=== PATIENT | male | born 1950 | race Caucasian/White ===

== ENCOUNTER 2019-04-03 12:51 | Outpatient (CLI) | payer MEDICARE | END 2019-04-03 23:59 | disposition home or self-care (01) | LOC: CFH 12:51 | PROVIDERS: ATTEND Family Medicine | DX: M25.562 Pain in left knee (principal) ==

== ENCOUNTER → 2019-05-31 | Outpatient (CLI) | payer MEDICARE ==
[~2019-05-31] MED LIST: TAMS-11 PO
== END | disposition home or self-care (01) ==
LOC: STAR 11:12
PROVIDERS: ATTEND Orthopaedic Surgery
DX: Z01.818 Encounter for other preprocedural examination (principal); S83.242A Other tear of medial meniscus, current injury, left knee, initial encounter; X58.XXXA Exposure to other specified factors, initial encounter; Y93.89 Activity, other specified; Y92.89 Other specified places as the place of occurrence of the external cause; Y99.8 Other external cause status
CPT/HCPCS: 93005

== ENCOUNTER 2019-06-04 05:37 | Day surgery (SDC) | payer MEDICARE ==
[~2019-06-04] VITALS: Ht 177.8 cm; Wt 78.0 kg
[2019-06-04] MEDS ORDERED: EPINEPHRINE 1 MG/ML, 1ML ONE (06:26)
[2019-06-04] MEDS ORDERED: LIDOCAINE 1%-EPI 1:100K, 20ML ONE (06:26)
[2019-06-04] MEDS ORDERED: BUPIVACAINE/PF 0.5% ONE (06:26)
[2019-06-04 06:46] VITALS: BP 112/81
[2019-06-04] MEDS ORDERED: LACTATED RINGERS 1,000 ML IV SCH (06:59)
[2019-06-04] MEDS ORDERED: ACETAMINOPHEN 500 MG TABLET PO ONE (07:00)
[2019-06-04] MEDS ORDERED: GABAPENTIN 300 MG CAPSULE PO ONE (07:00)
[2019-06-04] MEDS ORDERED: FENTANYL PF 100 MCG/2ML ONE (07:22)
[2019-06-04] MEDS ORDERED: MIDAZOLAM 1 MG/ML, 2ML ONE (07:22)
[2019-06-04] MEDS ORDERED: MEPERIDINE/PF 25MG/ML,1ML IVPush PRN (07:30)
[2019-06-04] MEDS ORDERED: HYDROmorphone 2 MG/ML, 1ML IVPush PRN (07:30)
[2019-06-04] MEDS ORDERED: ALBUTEROL/IPRATROPIUM 2.5MG/0.5MG, 3 ML NPPB PRN (07:30)
[2019-06-04] MEDS ORDERED: hydrALAzine 20 MG/ML, 1ML IV PRN (07:30)
[2019-06-04] MEDS ORDERED: TAMS-11 PO (07:30)
[2019-06-04] MEDS ORDERED: OXYcodone 5 MG/5 ML ORAL.SOL UDC PO PRN (07:30)
[2019-06-04] MEDS ORDERED: METOPROLOL 1 MG/ML, 5ML IV PRN (07:30)
[2019-06-04] MEDS ORDERED: FENTANYL PF 100 MCG/2ML IV PRN (07:30)
[2019-06-04] MEDS ORDERED: MIDAZOLAM 1 MG/ML, 2ML IV PRN (07:30)
[2019-06-04] MEDS ORDERED: PROMETHAZINE 25 MG/ML, 1ML IV PRN (07:30)
[2019-06-04] MEDS ORDERED: KETOROLAC 30 MG/1 ML ONE (07:48)
[2019-06-04] MEDS ORDERED: PROPOFOL 10 MG/ML, 20ML ONE (08:03)
[2019-06-04] MEDS ORDERED: ONDANSETRON 2MG/ML, 2ML ONE (08:03)
[2019-06-04] MEDS ORDERED: DEXAMETHASONE 4 MG/ML, 1ML ONE (08:03)
[2019-06-04] MEDS ORDERED: CEFAZOLIN 1,000 MG ONE (08:03)
[2019-06-04] MEDS ORDERED: MEPERIDINE/PF 25MG/ML,1ML ONE (09:28)
[2019-06-04] MEDS ORDERED: OXYcodone 5 MG/5 ML ORAL.SOL UDC ONE (09:28)
[2019-11-05] MEDS ORDERED: TICA90TA PO (08:17)
[2019-11-05] MEDS ORDERED: ATOR-2 PO (08:17)
[2019-11-05] MEDS ORDERED: ASPI-515 PO (08:17)
[2019-11-05] MEDS ORDERED: CARV3.1212 PO (08:17)
== END 2019-06-04 11:10 | disposition home or self-care (01) ==
LOC: OUT 05:37
PROVIDERS: ATTEND Orthopaedic Surgery
DX: S83.232A Complex tear of medial meniscus, current injury, left knee, initial encounter (principal); M94.262 Chondromalacia, left knee; M21.162 Varus deformity, not elsewhere classified, left knee; N40.0 Benign prostatic hyperplasia without lower urinary tract symptoms; M19.90 Unspecified osteoarthritis, unspecified site; Z79.899 Other long term (current) drug therapy; Z87.891 Personal history of nicotine dependence; X58.XXXA Exposure to other specified factors, initial encounter; Y93.89 Activity, other specified; Y92.89 Other specified places as the place of occurrence of the external cause; Y99.8 Other external cause status
CPT/HCPCS: 29881; J0171; J0690; J1100; J1885; J2175; J2250; J2405; J2704; J3010; J3490; J7120

== ENCOUNTER → 2019-07-26 | Outpatient (CLI) | payer MEDICARE ==
[~2019-07-26] MED LIST changes: +OMNIPAQUE 350 MG/ML, 75ML BOTTLE ONE
[2019-07-26 13:14] LABS: ALANINE AMINOTRANSFERASE 27 U/L (12-78); ALBUMIN 3.5 g/dL (3.4-5.0); ALKALINE PHOSPHATASE 74 U/L (45-117); BILIRUBIN,TOTAL 0.7 mg/dL (0.2-1.0); CALCIUM 8.8 mg/dL (8.5-10.1); CREATININE 0.96 mg/dL (0.7-1.3); TOTAL PROTEIN 7.2 g/dL (6.4-8.2)
[2019-07-26 13:28] LABS: ANION GAP 4 mmol/L (5-15); CHLORIDE 108 mmol/L (98-107)
== END | disposition home or self-care (01) ==
LOC: CFH 08:13
PROVIDERS: ATTEND Nurse Practitioner Family
DX: D17.9 Benign lipomatous neoplasm, unspecified (principal); M19.011 Primary osteoarthritis, right shoulder; J84.10 Pulmonary fibrosis, unspecified; R22.2 Localized swelling, mass and lump, trunk
CPT/HCPCS: 36415; 71260; 80053; 82565; Q9967

== ENCOUNTER 2019-11-16 18:21 | Inpatient (IN) | payer MEDICARE ==
[~2019-11-16] VITALS: Ht 175.3 cm; Wt 76.9 kg
[~2019-11-16 18:21] MED LIST changes: +ASPI-515 PO; +ATOR-2 PO; +CARV3.1212 PO; -OMNIPAQUE 350 MG/ML, 75ML BOTTLE ONE; +TICA90TA PO
--- NOTE | 2019-11-16 18:42 | NUR ---
BIB [facility] FOR C/O LIGHTHEADEDNESS AND CLAMMY W/ LOW BP AFTER WORKING IN THE YARD. PT HAS HX WA W/ 2 STENTS 3 WEEKS AGO. PT RESTING ON [place]. DELROY. VSS. DENIES CP/SOB. MONITORS APPLIED.
--- NOTE | 2019-11-16 19:01 | NUR ---
REPORT GIVEN TO JENELLE EDWARDS RN.
[2019-11-16 19:17] LABS: BASOPHILS # (AUTO) 0.02 x10^3/uL (0-0.1); BASOPHILS % (AUTO) 1 % (0-1); EOSINOPHILS # (AUTO) 0.12 x10^3/uL (0-0.4); EOSINOPHILS % (AUTO) 3 % (1-7); LYMPHOCYTES # (AUTO) 0.96 x10^3/uL (1-3.4); LYMPHOCYTES % (AUTO) 22 % (22-44); MD NO; MEAN CORPUSCULAR HEMOGLOBIN 30.7 pg (27.5-34.5); MEAN CORPUSCULAR HGB CONC 33.2 g/dL (33.2-36.2); MEAN CORPUSCULAR VOLUME 92.7 fL (81-97); MEAN PLATELET VOLUME 8.8 fL (7.4-10.4); MONOCYTES # (AUTO) 0.64 x10^3/uL (0.2-0.8); MONOCYTES % (AUTO) 14 % (2-9); NEUTROPHILS # (AUTO) 2.71 x10^3/uL (1.8-6.8); NEUTROPHILS % (AUTO) 61 % (42-75); PLATELET COUNT 266 x10^3/uL (130-400); RED BLOOD COUNT 4.29 x10^6/uL (4.38-5.82); RED CELL DISTRIBUTION WIDTH 12.8 % (9.4-14.8)
[2019-11-16 19:25] LABS: ALBUMIN 3.3 g/dL (3.4-5.0); ANION GAP 8 mmol/L (5-15); CALCIUM 9.2 mg/dL (8.5-10.1); CHLORIDE 109 mmol/L (98-107)
[2019-11-16 19:30] LABS: CREATININE 1.06 mg/dL (0.7-1.3); TROPONIN I 0.057 ng/mL (0.000-0.045)
--- NOTE | 2019-11-16 20:43 | NUR ---
PT PROVIDED WATER PER MD. MONITORING IN PLACE, CALL LIGHT WITHIN REACH. PT UPDATED ON POC.
[2019-11-16] MEDS ORDERED: hydrALAzine 20 MG/ML, 1ML IVPush PRN (21:30)
[2019-11-16] MEDS ORDERED: BISACODYL 10 MG SUPP PR PRN (21:30)
[2019-11-16] MEDS ORDERED: ACETAMINOPHEN 325 MG TABLET PO PRN (21:30)
[2019-11-16] MEDS ORDERED: POLYETHYLENE GLYCOL 17 GM PACKET PO PRN (21:30)
[2019-11-16] MEDS ORDERED: ONDANSETRON 2MG/ML, 2ML IVPush PRN (21:30)
--- NOTE | 2019-11-16 21:36 | NUR ---
PT PROVIDED SANDWICH AND WATER AT THIS TIME. DENIES FUTHER NEEDS.
--- NOTE | 2019-11-16 22:34 | NUR ---
Float rn:Pt assisted to RR. Amb w/ steady gait and independent. VSS. Lights turned off and HOB lowered for comfort.
[2019-11-16 23:00] VITALS: BP 114/75
[2019-11-16 23:02] VITALS: BP 107/73
[2019-11-16 23:04] VITALS: BP 100/66
[2019-11-17 00:52] LABS: TROPONIN I 0.049 ng/mL (0.000-0.045)
[2019-11-17] MEDS ORDERED: CARVEDILOL 3.125 MG TABLET PO SCH (06:00)
[2019-11-17 07:10] LABS: BASOPHILS # (AUTO) 0.01 x10^3/uL (0-0.1); BASOPHILS % (AUTO) 0 % (0-1); EOSINOPHILS # (AUTO) 0.09 x10^3/uL (0-0.4); EOSINOPHILS % (AUTO) 2 % (1-7); LYMPHOCYTES # (AUTO) 0.77 x10^3/uL (1-3.4); LYMPHOCYTES % (AUTO) 17 % (22-44); MD NO; MEAN CORPUSCULAR HEMOGLOBIN 31.1 pg (27.5-34.5); MEAN CORPUSCULAR HGB CONC 33.7 g/dL (33.2-36.2); MEAN CORPUSCULAR VOLUME 92.3 fL (81-97); MEAN PLATELET VOLUME 8.2 fL (7.4-10.4); MONOCYTES # (AUTO) 0.44 x10^3/uL (0.2-0.8); MONOCYTES % (AUTO) 10 % (2-9); NEUTROPHILS # (AUTO) 3.14 x10^3/uL (1.8-6.8); NEUTROPHILS % (AUTO) 71 % (42-75); PLATELET COUNT 252 x10^3/uL (130-400); RED BLOOD COUNT 4.35 x10^6/uL (4.38-5.82); RED CELL DISTRIBUTION WIDTH 12.8 % (9.4-14.8)
[2019-11-17 07:13] VITALS: BP 104/68
[2019-11-17 07:19] VITALS: BP 111/76
[2019-11-17 07:21] VITALS: BP 96/70
[2019-11-17 07:24] LABS: ANION GAP 10 mmol/L (5-15); CALCIUM 8.2 mg/dL (8.5-10.1); CHLORIDE 110 mmol/L (98-107)
[2019-11-17 07:30] LABS: ALANINE AMINOTRANSFERASE 25 U/L (12-78); ALKALINE PHOSPHATASE 60 U/L (45-117); BILIRUBIN,TOTAL 0.6 mg/dL (0.2-1.0); CREATININE 0.84 mg/dL (0.7-1.3); TOTAL PROTEIN 6.2 g/dL (6.4-8.2); TROPONIN I 0.048 ng/mL (0.000-0.045)
[2019-11-17] MEDS ORDERED: SODIUM CHLORIDE 0.9% 1,000 ML IV SCH (08:00)
[2019-11-17] MEDS ORDERED: SODIUM CHLORIDE 0.9% 1,000ML IVBOLUS ONE (08:00)
[2019-11-17] MEDS ORDERED: ASPIRIN 81 MG TABLET EC PO SCH (09:00)
[2019-11-17] MEDS ORDERED: TICAGRELOR 90 MG TABLET PO SCH (09:00)
[2019-11-17] MEDS ORDERED: TAMSULOSIN 0.4 MG CAP.ER.24H PO SCH (09:00)
[2019-11-17] MEDS ORDERED: SENNA/DOCUSATE TABLET PO SCH (09:00)
[2019-11-17 13:07] VITALS: BP 109/66
[2019-11-17 13:13] VITALS: BP 105/68
[2019-11-17 13:15] VITALS: BP 98/65
[2019-11-17] MEDS ORDERED: ATORVASTATIN 80 MG TABLET PO SCH (21:00)
== END 2019-11-17 15:14 | disposition home or self-care (01) | DRG 312 ==
LOC: ED 19:20 → EDIP 20:44 → 5SO 22:52 → DCLOUNGE 11-17 15:10
PROVIDERS: ADMIT Hospitalist; ATTEND Internal Medicine Infectious Disease
DX: I95.1 Orthostatic hypotension (principal); E86.0 Dehydration; M54.12 Radiculopathy, cervical region; R19.7 Diarrhea, unspecified; N40.0 Benign prostatic hyperplasia without lower urinary tract symptoms; I25.2 Old myocardial infarction; Z87.891 Personal history of nicotine dependence; Z95.5 Presence of coronary angioplasty implant and graft; Z79.899 Other long term (current) drug therapy
CPT/HCPCS: 36415; 70450; 71045; 80048; 80053; 82040; 84443; 84484; 85025; 93005; 99285; G0378; J7030

== ENCOUNTER → 2020-10-29 | Outpatient (CLI) | payer MEDICARE ==
[~2020-10-29] MED LIST changes: +ASCO100019 PO; -ASPI-515 PO; +ASPI-963 PO; +CHOL10003 PO; +FENU500C PO; +GLUC500T11 PO; +L. R1CAP2 PO; +MAGN400T36 PO; +PRAS10TA4 PO; +PUMP160C2 PO; +TURM500C4 PO; +UBID100C41 PO; +ZINC100T PO
[2020-10-29 15:04] LABS: BASOPHILS % (AUTO) 1 % (0-1); EOSINOPHILS % (AUTO) 2 % (1-7); LYMPHOCYTES % (AUTO) 17 % (22-44); MEAN CORPUSCULAR HEMOGLOBIN 31.5 pg (27.5-34.5); MEAN CORPUSCULAR HGB CONC 34.1 g/dL (33.2-36.2); MEAN PLATELET VOLUME 8.5 fL (7.4-10.4); MONOCYTES % (AUTO) 10 % (2-9); NEUTROPHILS % (AUTO) 71 % (42-75); PLATELET COUNT 258 x10^3/uL (130-400); RED BLOOD COUNT 4.84 x10^6/uL (4.38-5.82); RED CELL DISTRIBUTION WIDTH 13.8 % (9.4-14.8)
[2020-10-29 15:05] LABS: MD NO
[2020-10-29 15:13] LABS: ALANINE AMINOTRANSFERASE 47 U/L (12-78); ALBUMIN 3.7 g/dL (3.4-5.0); ANION GAP 6 mmol/L (5-15); CALCIUM 9.2 mg/dL (8.5-10.1); CHLORIDE 109 mmol/L (98-107); CREATININE 0.87 mg/dL (0.7-1.3)
[2020-10-29 15:16] LABS: ALKALINE PHOSPHATASE 69 U/L (45-117); BILIRUBIN,TOTAL 0.7 mg/dL (0.2-1.0); TOTAL PROTEIN 7.1 g/dL (6.4-8.2)
[2020-10-29 15:17] LABS: PROTHROMBIN TIME 10.7 Seconds (9.6-11.5)
[2020-10-29 16:05] LABS: MICROSCOPIC NOT IND
== END | disposition home or self-care (01) ==
LOC: STAR 13:30
PROVIDERS: ATTEND Neurological Surgery
DX: Z01.810 Encounter for preprocedural cardiovascular examination (principal); Z01.811 Encounter for preprocedural respiratory examination; Z01.812 Encounter for preprocedural laboratory examination; Z01.818 Encounter for other preprocedural examination; R82.90 Unspecified abnormal findings in urine; R79.1 Abnormal coagulation profile; M47.22 Other spondylosis with radiculopathy, cervical region; M54.2 Cervicalgia; R94.31 Abnormal electrocardiogram [ECG] [EKG]; Z20.822 Contact with and (suspected) exposure to COVID-19
CPT/HCPCS: 36415; 71046; 80053; 81003; 85025; 85610; 85730; 93005; U0003; U0005

== ENCOUNTER 2020-11-04 07:00 | Inpatient (IN) | payer MEDICARE ==
[~2020-11-04] VITALS: Ht 177.8 cm; Wt 80.0 kg
[2020-11-04 13:11] VITALS: BP 173/74
[2020-11-04] MEDS ORDERED: CHLORHEXIDINE 15 ML UDC ONE (13:15)
[2020-11-04] MEDS ORDERED: CHLORHEXIDINE 15 ML UDC PO ONE (13:30)
[2020-11-04] MEDS ORDERED: LACTATED RINGERS 1,000 ML IV SCH (13:30)
[2020-11-04] MEDS ORDERED: FENTANYL PF 250 MCG/5ML ONE (13:31)
[2020-11-04] MEDS ORDERED: MIDAZOLAM 1 MG/ML, 2ML ONE (13:31)
[2020-11-04] MEDS ORDERED: VANCOMYCIN 1,000 MG ONE (13:49)
[2020-11-04] MEDS ORDERED: BACITRACIN 50,000 UNIT ONE (13:49)
[2020-11-04] MEDS ORDERED: BUPIVACAINE/PF 0.5% ONE (13:49)
[2020-11-04] MEDS ORDERED: EPINEPHRINE 1 MG/ML, 1ML ONE (13:49)
[2020-11-04] MEDS ORDERED: LABETALOL 5MG/ML, 20ML IV PRN (14:00)
[2020-11-04] MEDS ORDERED: hydrALAzine 20 MG/ML, 1ML IV PRN (14:00)
[2020-11-04] MEDS ORDERED: HALOPERIDOL 5 MG/ML IV PRN (14:00)
[2020-11-04] MEDS ORDERED: PROMETHAZINE 25 MG/ML, 1ML IVPush PRN (14:00)
[2020-11-04] MEDS ORDERED: DIPHENHYDRAMINE 50 MG/ML, 1ML IVPush PRN ×2 (14:00→16:30)
[2020-11-04] MEDS ORDERED: OXYcodone 5 MG/5 ML ORAL.SOL UDC PO PRN (14:00)
[2020-11-04] MEDS ORDERED: HYDROmorphone 1 MG/ML, 1ML INJ IVPush PRN ×2 (14:00→16:30)
[2020-11-04] MEDS ORDERED: FENTANYL PF 100 MCG/2ML IV PRN (14:00)
[2020-11-04] MEDS ORDERED: MEPERIDINE/PF 25MG/0.5ML IVPush PRN (14:00)
[2020-11-04] MEDS ORDERED: ACETAMINOPHEN 325 MG TABLET PO PRN (14:00)
[2020-11-04] MEDS ORDERED: GABA300C PO (14:04)
[2020-11-04] MEDS ORDERED: CARV3.122 PO (14:04)
[2020-11-04] MEDS ORDERED: ASPI81TA45 PO (14:04)
[2020-11-04] MEDS ORDERED: ATOR-2 PO (14:04)
[2020-11-04] MEDS ORDERED: CEFAZOLIN 1,000 MG ONE (15:50)
[2020-11-04] MEDS ORDERED: ONDANSETRON 2MG/ML, 2ML ONE (15:50)
[2020-11-04] MEDS ORDERED: PROPOFOL 10 MG/ML, 20ML ONE (15:50)
[2020-11-04] MEDS ORDERED: DEXAMETHASONE 4 MG/ML, 1ML ONE (15:50)
[2020-11-04] MEDS ORDERED: SUCCINYLCHOLINE 20 MG/ML, 10ML ONE (15:50)
[2020-11-04] MEDS ORDERED: NEOSTIGMINE 1 MG/ML, 10ML ONE (15:50)
[2020-11-04] MEDS ORDERED: ROCURONIUM 10MG/ML,5ML ONE (15:50)
[2020-11-04] MEDS ORDERED: GLYCOPYRROLATE 0.2MG/1ML, 5ML ONE (15:50)
[2020-11-04] MEDS ORDERED: OXYcodone 5 MG/5 ML ORAL.SOL UDC ONE (16:19)
[2020-11-04] MEDS ORDERED: FENTANYL PF 100 MCG/2ML ONE (16:19)
[2020-11-04] MEDS ORDERED: LABETALOL 5MG/ML, 20ML IVPush PRN (16:30)
[2020-11-04] MEDS ORDERED: METHOCARBAMOL 1,000 MG in DEXTROSE 5% 100 ML IV ONE (16:30)
[2020-11-04] MEDS ORDERED: HYDROcodone/APAP 5/325 TABLET PO PRN (16:30)
[2020-11-04] MEDS ORDERED: BISACODYL 10 MG SUPP PR PRN (16:30)
[2020-11-04] MEDS ORDERED: DIPHENHYDRAMINE 50 MG/ML, 1ML IM PRN (16:30)
[2020-11-04] MEDS ORDERED: PROMETHAZINE 25 MG/ML, 1ML IM PRN (16:30)
[2020-11-04] MEDS ORDERED: PHARMACY MAY ADJ FOR RENAL FX MC PRN (16:30)
[2020-11-04] MEDS ORDERED: MAGNESIUM HYDROXIDE 8%, 30ML UDC PO PRN (16:30)
[2020-11-04] MEDS ORDERED: DIPHENHYDRAMINE 50 MG CAPSULE PO PRN (16:30)
[2020-11-04] MEDS ORDERED: SENNA/DOCUSATE TABLET PO PRN (16:30)
[2020-11-04] MEDS ORDERED: METHOCARBAMOL 750 MG TABLET PO PRN (16:30)
[2020-11-04 17:41] VITALS: BP 149/81
[2020-11-04 18:23] VITALS: BP 144/60
[2020-11-04] MEDS: D5%-0.9% NACL+KCL 20MEQ 1,000 ML IV SCH (18:49)
[2020-11-04] MEDS: FAMOTIDINE 20 MG TABLET PO SCH (20:34)
[2020-11-04] MEDS: DEXAMETHASONE 4 MG/ML, 1ML IVPush SCH (20:34)
[2020-11-04] MEDS: CARVEDILOL 3.125 MG TABLET PO SCH (20:36)
[2020-11-04] MEDS: OXYcodone/APAP 5/325MG TABLET PO PRN (20:37)
[2020-11-04] MEDS ORDERED: ATORVASTATIN 80 MG TABLET PO SCH (21:00)
[2020-11-04] MEDS: CEFAZOLIN PMX 1GM/50ML 50 ML IVPB SCH (22:33)
[2020-11-05] MEDS: OXYcodone/APAP 5/325MG TABLET PO PRN ×2 (00:43→08:10)
[2020-11-05 00:51] VITALS: BP 132/88
[2020-11-05] MEDS: DEXAMETHASONE 4 MG/ML, 1ML IVPush SCH ×2 (02:01→08:07)
[2020-11-05 03:42] VITALS: BP 118/74
[2020-11-05] MEDS: CEFAZOLIN PMX 1GM/50ML 50 ML IVPB SCH (06:00)
[2020-11-05] MEDS: D5%-0.9% NACL+KCL 20MEQ 1,000 ML IV SCH (07:00)
[2020-11-05 08:00] VITALS: BP 118/82
[2020-11-05] MEDS: CARVEDILOL 3.125 MG TABLET PO SCH (08:08)
[2020-11-05] MEDS: FAMOTIDINE 20 MG TABLET PO SCH (08:08)
[2020-11-05] MEDS ORDERED: OXYC1TAB14 PO (08:25)
[2020-11-05] MEDS ORDERED: METH4TAB2 PO (08:25)
[2020-11-05] MEDS ORDERED: METH-640 PO (08:25)
[2020-11-05] MEDS ORDERED: GABAPENTIN 300 MG CAPSULE PO SCH (09:00)
[2020-11-05] MEDS ORDERED: MAGNESIUM OXIDE 400 MG TABLET PO SCH (09:00)
== END 2020-11-05 11:30 | disposition home or self-care (01) | DRG 472 ==
LOC: ORIP 12:34 → 4NE 17:32 → DCLOUNGE 11-05 11:18
PROVIDERS: ADMIT Neurological Surgery; ATTEND Neurological Surgery
PROC: 0RG20A0 Fusion of 2 or more Cervical Vertebral Joints with Interbody Fusion Device, Anterior Approach, Anterior Column, Open Approach (ICD-10-PCS; 2020-11-04)
PROC: 0RT30ZZ Resection of Cervical Vertebral Disc, Open Approach (ICD-10-PCS; 2020-11-04)
PROC: 0PB30ZZ Excision of Cervical Vertebra, Open Approach (ICD-10-PCS; principal; 2020-11-04 15:00)
DX: M50.10 Cervical disc disorder with radiculopathy, unspecified cervical region (principal); M50.00 Cervical disc disorder with myelopathy, unspecified cervical region; M47.892 Other spondylosis, cervical region; M48.02 Spinal stenosis, cervical region; Z20.822 Contact with and (suspected) exposure to COVID-19
CPT/HCPCS: 36415; 72040; 86850; 86900; G0378; J0171; J0690; J1100; J2250; J2405; J2704; J2710; J3010; J3370; J0330; J2800; J3480; J7120

== ENCOUNTER 2020-11-06 11:54 | Emergency (ER) | payer MEDICARE ==
[~2020-11-06] VITALS: Ht 177.8 cm; Wt 76.7 kg
[~2020-11-06 11:54] MED LIST changes: +ASPI81TA45 PO; +CARV3.122 PO; +GABA300C PO; +METH-640 PO; +METH4TAB2 PO; +OXYC1TAB14 PO
[2020-11-06 13:38] LABS: BASOPHILS % (AUTO) 0 % (0-1); EOSINOPHILS % (AUTO) 0 % (1-7); LYMPHOCYTES % (AUTO) 4 % (22-44); MEAN CORPUSCULAR HEMOGLOBIN 31.4 pg (27.5-34.5); MEAN CORPUSCULAR HGB CONC 33.9 g/dL (33.2-36.2); MEAN PLATELET VOLUME 8.5 fL (7.4-10.4); MONOCYTES % (AUTO) 7 % (2-9); NEUTROPHILS % (AUTO) 89 % (42-75); PLATELET COUNT 234 x10^3/uL (130-400); RED BLOOD COUNT 4.59 x10^6/uL (4.38-5.82); RED CELL DISTRIBUTION WIDTH 13.9 % (9.4-14.8)
[2020-11-06 13:49] LABS: ALBUMIN 3.5 g/dL (3.4-5.0); ANION GAP 5 mmol/L (5-15); CALCIUM 8.9 mg/dL (8.5-10.1); CHLORIDE 106 mmol/L (98-107); CREATININE 0.84 mg/dL (0.7-1.3)
[2020-11-06 13:57] LABS: MD SCAN
[2020-11-06] MEDS ORDERED: SODIUM CHLORIDE FLUSH 10ML SYR IVF ONE (14:00)
--- NOTE | 2020-11-06 14:41 | NUR ---
PT OFF THE FLOOR TO CT
[2020-11-06] MEDS ORDERED: OMNIPAQUE 350 MG/ML, 100ML BOTTLE ONE (14:57)
[2020-11-06 16:25] VITALS: BP 129/81
--- NOTE | 2020-11-06 16:25 | NUR ---
PT REC'VD DISCHARGE INSTRUCTIONS AND EDUCATION. PT HAD NO FURTHER QUESTIONS. PT AMBULATED TO DC AREA, STEADY GAIT.
== END 2020-11-06 16:28 | disposition home or self-care (01) ==
LOC: ED 13:07
DX: L20.9 Atopic dermatitis, unspecified (principal); M54.2 Cervicalgia; F17.290 Nicotine dependence, other tobacco product, uncomplicated; Z91.048 Other nonmedicinal substance allergy status; I25.2 Old myocardial infarction; Z98.61 Coronary angioplasty status
CPT/HCPCS: 36415; 70491; 80048; 82040; 85025; 99285; Q9967